=== PATIENT | male | born 1970 | race African-American/Black ===

== ENCOUNTER 2022-10-15 23:09 | Inpatient (IN) | payer MEDICAID ==
[~2022-10-15] VITALS: Ht 165.1 cm; Wt 63.6 kg
[~2022-10-15 23:09] MED LIST: AMLO10TA80 PO; FURO-152 PO; LOSA25TA3 PO
[2022-10-15] MEDS ORDERED: METHYLPREDNISOLONE SOD SUCC 125 MG/2 ML VIAL IV STA (23:25)
[2022-10-15] MEDS ORDERED: ALBUTEROL (0.083%) 2.5MG/3ML NEB HHN STA (23:25)
[2022-10-15] MEDS ORDERED: IPRATROPIUM BROMIDE (0.02%) 0.5MG/2.5ML NEB HHN STA (23:25)
[2022-10-15] MEDS ORDERED: LORAZEPAM 2MG/ML CPJ IV ONE (23:30)
[2022-10-16] VITALS (14 sets, daily range): BP systolic 91–158; BP diastolic 54–125
[2022-10-16] MEDS ORDERED: LORAZEPAM 2MG/ML CPJ IV ONE
[2022-10-16] MEDS ORDERED: HALOPERIDOL LACTATE 5MG/ML VIAL IM ONE
[2022-10-16 00:12] LABS: HEMATOCRIT. 27.2 % (42.0-52.0); HEMOGLOBIN. 8.2 g/dL (14.0-18.0); MEAN CORPUSCULAR HEMOGLOBIN 22.7 pg (28.0-32.0); MEAN CORPUSCULAR VOLUME 74.9 fL (80.0-94.0); MEAN PLATELET VOLUME 7.2 fl (7.4-10.4); PLATELET 367 x1000/uL (130-400); RED BLOOD CELL COUNT 3.63 mill/uL (4.7-6.1); RED CELL DISTRIBUTION WIDTH 21.4 % (11.6-14.6)
[2022-10-16 00:23] LABS: CHLORIDE 102 mEq/L (98-107)
[2022-10-16 00:35] LABS: BG BASE EXCESS -10.5 mmol/L (-2.0-2.0); BG CARBOXYHEMOGLOBIN 0.4 % (0.5-1.5); BG DEOXYHEMOGLOBIN 0.4 % (0.0-5.0); BG FRACTION INSPIRED OXYGEN 100; BG METHEMOGLOBIN 0.4 % (0.0-1.5); BG OXYGEN SATURATION 99.6 % (92.0-98.5); BG OXYHEMOGLOBIN 98.8 % (94.0-97.0); BG PCO2 31.7 mmHg (35.0-45.0); BG PH 7.293 (7.350-7.450); BG PO2 287.5 mmHg (75.0-100.0); BG SAMPLE SITE RIGHT RADIAL; BG TOTAL HEMOGLOBIN 8.9 g/dL (12.0-18.0); BG VENT MODE MASK - BIPAP
[2022-10-16 00:58] LABS: PLATELET ESTIMATE NORMAL
[2022-10-16] MEDS ORDERED: IPRATROPIUM BROMIDE (0.02%) 0.5MG/2.5ML NEB ONE (01:08)
[2022-10-16] MEDS ORDERED: ALBUTEROL (0.083%) 2.5MG/3ML NEB HHN NR (01:15)
[2022-10-16] MEDS ORDERED: OLANZAPINE 10 MG/VIAL IM ONE (01:30)
[2022-10-16] MEDS ORDERED: CEFTRIAXONE 1 G PREMIX 50 ML IV ONE (01:45)
[2022-10-16] MEDS ORDERED: VANCOMYCIN 1G PREMIX 200 ML IV SCH (01:45)
[2022-10-16] MEDS ORDERED: AZITHROMYCIN 500MG/250ML 250 ML IV ONE (02:15)
[2022-10-16] MEDS ORDERED: AZITHROMYCIN 500MG/250ML 250 ML IV NR (08:00)
[2022-10-16] MEDS ORDERED: FUROSEMIDE 20MG/2ML VIAL IVP NR (09:15)
[2022-10-16] MEDS ORDERED: ONDANSETRON HCL 4MG/2ML INJ IV PRN (10:00)
[2022-10-16] MEDS ORDERED: DOCUSATE SODIUM 100MG CAPSULE PO PRN (10:00)
[2022-10-16] MEDS ORDERED: MAGNESIUM/ALUMINUM HYDROXIDE/SIMETHICONE 30ML UDC PO PRN (10:00)
[2022-10-16] MEDS ORDERED: GUAIFENESIN 200MG/10ML SUGAR FREE UDC PO PRN (10:00)
[2022-10-16] MEDS ORDERED: PIPERACILLIN/TAZOBACTAM 3.375 G in DEXTROSE 5% WATER 50 ML IV SCH (10:00)
[2022-10-16] MEDS ORDERED: ACETAMINOPHEN 325MG TABLET PO PRN ×2 (10:00)
[2022-10-16] MEDS ORDERED: IPRATROPIUM/ALBUTEROL 0.5-3(2.5)MG/3ML NEB HHN PRN ×2 (10:00→10:45)
[2022-10-16] MEDS ORDERED: IPRATROPIUM BROMIDE (0.02%) 0.5MG/2.5ML NEB HHN PRN ×2 (10:30→11:15)
[2022-10-16] MEDS ORDERED: ALBUTEROL (0.083%) 2.5MG/3ML NEB HHN PRN ×2 (10:30→11:15)
[2022-10-16 10:47] LABS: BG BASE EXCESS -11.2 mmol/L (-2.0-2.0); BG CARBOXYHEMOGLOBIN 0.3 % (0.5-1.5); BG DEOXYHEMOGLOBIN 5.6 % (0.0-5.0); BG FRACTION INSPIRED OXYGEN 60; BG HCO3 ACT 14.5 mmol/L (22.0-26.0); BG METHEMOGLOBIN 0.5 % (0.0-1.5); BG OXYGEN SATURATION 94.4 % (92.0-98.5); BG OXYHEMOGLOBIN 93.6 % (94.0-97.0); BG PCO2 31.8 mmHg (35.0-45.0); BG PH 7.277 (7.350-7.450); BG PO2 89.6 mmHg (75.0-100.0); BG SAMPLE SITE RIGHT RADIAL; BG TOTAL HEMOGLOBIN 10.1 g/dL (12.0-18.0); BG VENT MODE MASK - BIPAP
[2022-10-16] MEDS: FAMOTIDINE 20MG/2ML VIAL IV SCH (10:57)
[2022-10-16] MEDS ORDERED: IPRATROPIUM/ALBUTEROL 0.5-3(2.5)MG/3ML NEB HHN SCH (12:00)
[2022-10-16 12:01] LABS: PHOSPHORUS 7.4 mg/dL (2.5-4.9)
[2022-10-16] MEDS: PIPERACILLIN/TAZOBACTAM 3.375 G in DEXTROSE 5% WATER 50 ML IV SCH ×2 (12:47→21:00)
[2022-10-16 16:08] LABS: BG BASE EXCESS -14.2 mmol/L (-2.0-2.0); BG CARBOXYHEMOGLOBIN 0.3 % (0.5-1.5); BG DEOXYHEMOGLOBIN 2.2 % (0.0-5.0); BG FRACTION INSPIRED OXYGEN 60; BG HCO3 ACT 11.9 mmol/L (22.0-26.0); BG METHEMOGLOBIN 0.2 % (0.0-1.5); BG OXYGEN SATURATION 97.8 % (92.0-98.5); BG OXYHEMOGLOBIN 97.3 % (94.0-97.0); BG PCO2 28.9 mmHg (35.0-45.0); BG PH 7.233 (7.350-7.450); BG PO2 117.5 mmHg (75.0-100.0); BG SAMPLE SITE RIGHT BRACHIAL; BG TOTAL HEMOGLOBIN 9.7 g/dL (12.0-18.0)
[2022-10-16] MEDS: IPRATROPIUM BROMIDE (0.02%) 0.5MG/2.5ML NEB HHN SCH (16:26)
[2022-10-16] MEDS: ALBUTEROL (0.083%) 2.5MG/3ML NEB HHN SCH (16:26)
[2022-10-16 17:33] LABS: CREATINE KINASE MB FRACTION 12.5 ng/mL (0.5-3.6)
[2022-10-16 17:34] LABS: HDL CHOLESTEROL 20 mg/dL (40-59); LDL CHOLESTEROL 28 mg/dL (5-100)
[2022-10-16 17:42] LABS: FOLIC ACID (FOLATE) SERUM 15.6 ng/mL (>5.38)
[2022-10-16] MEDS ORDERED: SODIUM BICARBONATE 8.4% 1 MEQ/ML 50ML SYR IV NR (18:00)
[2022-10-16] MEDS: SEVELAMER CARBONATE 800 MG TABLET PO SCH (18:48)
[2022-10-16 21:44] LABS: D-DIMER 33.85 mg/L FEU (<0.50); INR 3.6; PROTHROMBIN TIME 36.1 sec (9.6-11.0)
[2022-10-17] VITALS (82 sets, daily range): BP systolic 103–170; BP diastolic 27–110
[2022-10-17] MEDS ORDERED: SODIUM CHLORIDE 0.45% 1,000 ML IV NR (03:00)
[2022-10-17 03:31] LABS: CLARITY URINE CLOUDY (CLEAR); COLOR URINE DARK YELLOW (YELLOW); KETONES URINE TRACE (NEGATIVE); LEUKOCYTE ESTERASE URINE 2+ (NEGATIVE); NITRITE URINE NEGATIVE (NEGATIVE); OCCULT BLOOD URINE 3+ (NEGATIVE); PROTEIN URINE 2+ (NEGATIVE); SPECIFIC GRAVITY URINE 1.018 (1.005-1.030)
[2022-10-17] MEDS: IPRATROPIUM BROMIDE (0.02%) 0.5MG/2.5ML NEB HHN SCH ×5 (03:35→20:22)
[2022-10-17] MEDS: ALBUTEROL (0.083%) 2.5MG/3ML NEB HHN SCH ×5 (03:35→20:22)
[2022-10-17 04:01] LABS: *AMPHETAMINES SCREEN URINE PRESUMTIVE POSITIVE (NEGATIVE); *BARBITURATES SCREEN URINE NEGATIVE (NEGATIVE); *BENZODIAZEPINES SCREEN URINE NEGATIVE (NEGATIVE); *COCAINE SCREEN URINE PRESUMTIVE POSITIVE (NEGATIVE); CANNABINOID URINE SCREEN NEGATIVE (NEGATIVE); METHADONE URINE SCREEN NEGATIVE (NEGATIVE); OPIATES URINE SCREEN NEGATIVE (NEGATIVE); PHENCYCLIDINE URINE SCREEN NEGATIVE (NEGATIVE)
[2022-10-17 05:31] LABS: CHLORIDE 102 mEq/L (98-107)
[2022-10-17 05:33] LABS: HEMATOCRIT. 35.1 % (42.0-52.0); HEMOGLOBIN. 10.3 g/dL (14.0-18.0); MEAN CORPUSCULAR HEMOGLOBIN 21.9 pg (28.0-32.0); MEAN CORPUSCULAR VOLUME 74.6 fL (80.0-94.0); MEAN PLATELET VOLUME 8.2 fl (7.4-10.4); PLATELET 294 x1000/uL (130-400); RED BLOOD CELL COUNT 4.71 mill/uL (4.7-6.1); RED CELL DISTRIBUTION WIDTH 21.7 % (11.6-14.6)
[2022-10-17 05:48] LABS: CREATINE KINASE MB FRACTION 14.5 ng/mL (0.5-3.6); T4 FREE 0.93 ng/dL (0.76-1.46)
[2022-10-17] MEDS: SEVELAMER CARBONATE 800 MG TABLET PO SCH ×3 (06:09→16:34)
[2022-10-17] MEDS: PIPERACILLIN/TAZOBACTAM 3.375 G in DEXTROSE 5% WATER 50 ML IV SCH (08:56)
[2022-10-17] MEDS: AZITHROMYCIN 500 MG in DEXT 5% WATER 250 ML IV SCH (08:56)
[2022-10-17] MEDS: FAMOTIDINE 20MG/2ML VIAL IV SCH (08:56)
[2022-10-17] MEDS: ASPIRIN 81MG TABLET PO SCH (08:56)
[2022-10-17] MEDS: QUETIAPINE FUMARATE 25MG TABLET PO SCH ×2 (08:57→20:42)
[2022-10-17 09:07] LABS: BG BASE EXCESS -7.2 mmol/L (-2.0-2.0); BG CARBOXYHEMOGLOBIN 0.5 % (0.5-1.5); BG DEOXYHEMOGLOBIN 2.8 % (0.0-5.0); BG FRACTION INSPIRED OXYGEN 60; BG HCO3 ACT 17.9 mmol/L (22.0-26.0); BG METHEMOGLOBIN 0.5 % (0.0-1.5); BG OXYGEN SATURATION 97.2 % (92.0-98.5); BG OXYHEMOGLOBIN 96.2 % (94.0-97.0); BG PCO2 34.6 mmHg (35.0-45.0); BG PH 7.331 (7.350-7.450); BG PO2 98.2 mmHg (75.0-100.0); BG SAMPLE SITE RIGHT BRACHIAL; BG TOTAL HEMOGLOBIN 11.3 g/dL (12.0-18.0); BG VENT MODE MASK - BIPAP
[2022-10-17 09:08] LABS: PLATELET ESTIMATE NORMAL
[2022-10-17] MEDS: AMLODIPINE 10MG TABLET PO SCH (10:00)
[2022-10-17] MEDS ORDERED: VANCOMYCIN 500MG PREMIX 100 ML IV SCH (12:00)
[2022-10-17] MEDS ORDERED: PHYTONADIONE 10MG/ML AMP SUBCUT NR (14:45)
[2022-10-17] MEDS ORDERED: CEFTRIAXONE 2 G PREMIX 50 ML IV SCH (16:15)
[2022-10-17] MEDS: CEFTRIAXONE 2 G in DEXTROSE 5% WATER 50 ML IV SCH (20:43)
[2022-10-17 23:35] LABS: INR 1.8; PROTHROMBIN TIME 19.1 sec (9.6-11.0)
[2022-10-18] VITALS (63 sets, daily range): BP systolic 81–171; BP diastolic 28–100
[2022-10-18] MEDS: IPRATROPIUM BROMIDE (0.02%) 0.5MG/2.5ML NEB HHN SCH ×3 (00:33→08:23)
[2022-10-18] MEDS: ALBUTEROL (0.083%) 2.5MG/3ML NEB HHN SCH ×3 (00:33→08:23)
[2022-10-18 05:43] LABS: HEMATOCRIT. 35.3 % (42.0-52.0); HEMOGLOBIN. 10.7 g/dL (14.0-18.0); MEAN CORPUSCULAR HEMOGLOBIN 22.5 pg (28.0-32.0); MEAN CORPUSCULAR VOLUME 74.2 fL (80.0-94.0); MEAN PLATELET VOLUME 8.3 fl (7.4-10.4); PLATELET 292 x1000/uL (130-400); RED BLOOD CELL COUNT 4.76 mill/uL (4.7-6.1); RED CELL DISTRIBUTION WIDTH 21.9 % (11.6-14.6)
[2022-10-18 05:58] LABS: INR 1.5; PROTHROMBIN TIME 16.1 sec (9.6-11.0)
[2022-10-18 06:16] LABS: CHLORIDE 107 mEq/L (98-107)
[2022-10-18] MEDS: SEVELAMER CARBONATE 800 MG TABLET PO SCH ×3 (06:44→18:22)
[2022-10-18] MEDS ORDERED: LIDOCAINE HCL 1% 30ML VIAL (10MG/ML) ONE (08:20)
[2022-10-18] MEDS ORDERED: HEPARIN 1000 UNITS/ML 10ML ONE (08:21)
[2022-10-18] MEDS ORDERED: LORAZEPAM 2MG/ML CPJ IV NR (08:30)
[2022-10-18] MEDS ORDERED: LORAZEPAM 2MG/ML CPJ IV PRN (09:00)
[2022-10-18 10:01] LABS: PLATELET ESTIMATE NORMAL
[2022-10-18] MEDS ORDERED: IPRATROPIUM/ALBUTEROL 0.5-3(2.5)MG/3ML NEB HHN PRN (10:15)
[2022-10-18] MEDS: FAMOTIDINE 20MG/2ML VIAL IV SCH (10:19)
[2022-10-18] MEDS: QUETIAPINE FUMARATE 25MG TABLET PO SCH ×2 (10:19→20:43)
[2022-10-18] MEDS: AZITHROMYCIN 500 MG in DEXT 5% WATER 250 ML IV SCH (10:19)
[2022-10-18] MEDS: ASPIRIN 81MG TABLET PO SCH (10:20)
[2022-10-18] MEDS: IPRATROPIUM/ALBUTEROL 0.5-3(2.5)MG/3ML NEB HHN SCH ×4 (12:36→23:57)
[2022-10-18] MEDS: AMLODIPINE 10MG TABLET PO SCH (14:20)
[2022-10-18] MEDS: SODIUM CHLORIDE 0.45% 1,000 ML IV SCH (14:59)
[2022-10-18 15:53] LABS: HEPATITIS B SURFACE ANTIGEN NEGATIVE
[2022-10-18] MEDS: CEFTRIAXONE 2 G in DEXTROSE 5% WATER 50 ML IV SCH (20:43)
[2022-10-19] VITALS (23 sets, daily range): BP systolic 114–170; BP diastolic 73–99
[2022-10-19] MEDS: IPRATROPIUM/ALBUTEROL 0.5-3(2.5)MG/3ML NEB HHN SCH ×4 (04:10→17:55)
[2022-10-19 05:46] LABS: HEMATOCRIT. 28.7 % (42.0-52.0); HEMOGLOBIN. 8.8 g/dL (14.0-18.0); MEAN CORPUSCULAR HEMOGLOBIN 22.1 pg (28.0-32.0); MEAN CORPUSCULAR VOLUME 72.1 fL (80.0-94.0); MEAN PLATELET VOLUME 7.9 fl (7.4-10.4); PLATELET 277 x1000/uL (130-400); RED BLOOD CELL COUNT 3.98 mill/uL (4.7-6.1); RED CELL DISTRIBUTION WIDTH 21.2 % (11.6-14.6)
[2022-10-19 05:56] LABS: INR 1.3; PROTHROMBIN TIME 13.4 sec (9.6-11.0)
[2022-10-19 06:02] LABS: CHLORIDE 104 mEq/L (98-107)
[2022-10-19] MEDS: ASPIRIN 81MG TABLET PO SCH (08:50)
[2022-10-19] MEDS: AZITHROMYCIN 500 MG in DEXT 5% WATER 250 ML IV SCH (08:50)
[2022-10-19] MEDS: SEVELAMER CARBONATE 800 MG TABLET PO SCH ×3 (08:50→17:34)
[2022-10-19] MEDS: AMLODIPINE 10MG TABLET PO SCH (08:51)
[2022-10-19] MEDS: QUETIAPINE FUMARATE 25MG TABLET PO SCH ×2 (08:51→22:19)
[2022-10-19] MEDS: FAMOTIDINE 20MG/2ML VIAL IV SCH (08:51)
[2022-10-19 09:44] LABS: PLATELET ESTIMATE NORMAL
[2022-10-19 10:33] LABS: BG BASE EXCESS -1.2 mmol/L (-2.0-2.0); BG CARBOXYHEMOGLOBIN 0.3 % (0.5-1.5); BG DEOXYHEMOGLOBIN 4.3 % (0.0-5.0); BG FRACTION INSPIRED OXYGEN 60; BG HCO3 ACT 24.1 mmol/L (22.0-26.0); BG METHEMOGLOBIN 0.2 % (0.0-1.5); BG OXYGEN SATURATION 95.7 % (92.0-98.5); BG OXYHEMOGLOBIN 95.2 % (94.0-97.0); BG PCO2 43.2 mmHg (35.0-45.0); BG PH 7.365 (7.350-7.450); BG PO2 87.4 mmHg (75.0-100.0); BG SAMPLE SITE RIGHT RADIAL; BG VENT MODE MASK - SIMPLE
[2022-10-19] MEDS: SODIUM CHLORIDE 0.45% 1,000 ML IV SCH (14:21)
[2022-10-19] MEDS ORDERED: IPRATROPIUM BROMIDE (0.02%) 0.5MG/2.5ML NEB HHN PRN (19:00)
[2022-10-19] MEDS ORDERED: ALBUTEROL (0.083%) 2.5MG/3ML NEB HHN PRN (19:00)
[2022-10-19] MEDS: CLONIDINE 0.1MG TABLET PO PRN (19:16)
[2022-10-19] MEDS: IPRATROPIUM BROMIDE (0.02%) 0.5MG/2.5ML NEB HHN SCH (21:49)
[2022-10-19] MEDS: ALBUTEROL (0.083%) 2.5MG/3ML NEB HHN SCH (21:49)
[2022-10-19] MEDS: CEFTRIAXONE 2 G in DEXTROSE 5% WATER 50 ML IV SCH (22:19)
[2022-10-20] VITALS (12 sets, daily range): BP systolic 145–201; BP diastolic 80–114
[2022-10-20] MEDS ORDERED: FUROSEMIDE 20MG/2ML VIAL IVP NR
[2022-10-20] MEDS: ALBUTEROL (0.083%) 2.5MG/3ML NEB HHN SCH ×6 (00:35→15:46)
[2022-10-20] MEDS: IPRATROPIUM BROMIDE (0.02%) 0.5MG/2.5ML NEB HHN SCH ×6 (00:35→15:46)
[2022-10-20 06:00] LABS: HEMATOCRIT. 33.4 % (42.0-52.0); HEMOGLOBIN. 10.2 g/dL (14.0-18.0); MEAN CORPUSCULAR HEMOGLOBIN 21.9 pg (28.0-32.0); MEAN PLATELET VOLUME 8.7 fl (7.4-10.4); PLATELET 271 x1000/uL (130-400); RED BLOOD CELL COUNT 4.64 mill/uL (4.7-6.1); RED CELL DISTRIBUTION WIDTH 21.5 % (11.6-14.6)
[2022-10-20 06:39] LABS: CHLORIDE 101 mEq/L (98-107)
[2022-10-20] MEDS: ASPIRIN 81MG TABLET PO SCH (08:31)
[2022-10-20] MEDS: SEVELAMER CARBONATE 800 MG TABLET PO SCH ×3 (08:31→17:46)
[2022-10-20] MEDS: AMLODIPINE 10MG TABLET PO SCH (08:33)
[2022-10-20] MEDS: FAMOTIDINE 20MG/2ML VIAL IV SCH (08:33)
[2022-10-20] MEDS: QUETIAPINE FUMARATE 25MG TABLET PO SCH ×2 (08:33→20:42)
[2022-10-20] MEDS: AZITHROMYCIN 500 MG in DEXT 5% WATER 250 ML IV SCH (08:34)
[2022-10-20] MEDS: SODIUM CHLORIDE 0.45% 1,000 ML IV SCH (11:43)
[2022-10-20] MEDS: CEFTRIAXONE 2 G in DEXTROSE 5% WATER 50 ML IV SCH (20:43)
[2022-10-20] MEDS ORDERED: HYDRALAZINE HCL 50MG TABLET PO SCH (21:00)
[2022-10-20] MEDS ORDERED: HYDRALAZINE HCL 10MG TABLET PO SCH (21:00)
[2022-10-20 21:42] LABS: CHLORIDE 102 mEq/L (98-107)
[2022-10-21] VITALS (14 sets, daily range): BP systolic 115–176; BP diastolic 63–110
[2022-10-21] MEDS: SODIUM CHLORIDE 0.45% 1,000 ML IV SCH (00:48)
[2022-10-21] MEDS: ALBUTEROL (0.083%) 2.5MG/3ML NEB HHN SCH ×5 (03:15→20:55)
[2022-10-21] MEDS: IPRATROPIUM BROMIDE (0.02%) 0.5MG/2.5ML NEB HHN SCH ×5 (03:15→20:55)
[2022-10-21 04:17] LABS: HIV SCREEN 4G Non Reactive (Non Reactive)
[2022-10-21 07:05] LABS: HEMOGLOBIN. 9.5 g/dL (14.0-18.0); MEAN CORPUSCULAR VOLUME 71.5 fL (80.0-94.0); MEAN PLATELET VOLUME 8.7 fl (7.4-10.4); PLATELET 248 x1000/uL (130-400); RED BLOOD CELL COUNT 4.33 mill/uL (4.7-6.1); RED CELL DISTRIBUTION WIDTH 21.7 % (11.6-14.6)
[2022-10-21 07:16] LABS: CHLORIDE 104 mEq/L (98-107)
[2022-10-21 07:24] LABS: CREATINE KINASE 67 IU/L (39-308); HAPTOGLOBIN 122 mg/dL (30-200)
[2022-10-21] MEDS: SEVELAMER CARBONATE 800 MG TABLET PO SCH ×3 (08:00→16:53)
[2022-10-21] MEDS: LOSARTAN POTASSIUM 25 MG TABLET PO SCH ×2 (09:00→11:21)
[2022-10-21] MEDS: QUETIAPINE FUMARATE 25MG TABLET PO SCH ×2 (09:00→20:42)
[2022-10-21] MEDS: AMLODIPINE 10MG TABLET PO SCH ×2 (09:00→11:21)
[2022-10-21] MEDS: ASPIRIN 81MG TABLET PO SCH (09:00)
[2022-10-21] MEDS: FAMOTIDINE 20MG/2ML VIAL IV SCH (09:00)
[2022-10-21 09:53] LABS: NUCLEATED RED BLOOD CELLS 2 /100 WBC; PLATELET ESTIMATE NORMAL
[2022-10-21 11:49] LABS: NUCLEATED RED BLOOD CELLS 1 /100 WBC; PLATELET ESTIMATE NORMAL
[2022-10-21] MEDS ORDERED: LIDOCAINE 2% 6ML GLYDO MM ONE (14:16)
[2022-10-21] MEDS ORDERED: TETRACAINE/BENZOCAINE/BUTAMBEN 20 GM SPRAY MM ONE (14:17)
[2022-10-21] MEDS ORDERED: FENTANYL CITRATE/PF 50MCG/ML 2ML VIAL ONE ×2 (14:40→14:51)
[2022-10-21] MEDS ORDERED: MIDAZOLAM HCL 2 MG/2 ML VIAL ONE ×2 (14:41→14:51)
[2022-10-21] MEDS: ENOXAPARIN 40MG/0.4ML SYR SUBCUT SCH (16:53)
[2022-10-21] MEDS ORDERED: HYDRALAZINE 20MG/ML VIAL IV PRN (17:45)
[2022-10-21] MEDS: CEFTRIAXONE 2 G in DEXTROSE 5% WATER 50 ML IV SCH (20:42)
[2022-10-21] MEDS: CLONIDINE 0.1MG TABLET PO PRN (20:44)
[2022-10-22] VITALS (17 sets, daily range): BP systolic 116–159; BP diastolic 64–98
[2022-10-22] MEDS: ALBUTEROL (0.083%) 2.5MG/3ML NEB HHN SCH ×5 (00:14→21:09)
[2022-10-22] MEDS: IPRATROPIUM BROMIDE (0.02%) 0.5MG/2.5ML NEB HHN SCH ×5 (00:15→21:09)
[2022-10-22 07:04] LABS: HEMATOCRIT. 28.4 % (42.0-52.0); HEMOGLOBIN. 8.8 g/dL (14.0-18.0); MEAN CORPUSCULAR HEMOGLOBIN 21.9 pg (28.0-32.0); MEAN CORPUSCULAR VOLUME 71.1 fL (80.0-94.0); MEAN PLATELET VOLUME 7.7 fl (7.4-10.4); PLATELET 251 x1000/uL (130-400); RED CELL DISTRIBUTION WIDTH 21.3 % (11.6-14.6)
[2022-10-22 07:51] LABS: CHLORIDE 108 mEq/L (98-107)
[2022-10-22] MEDS: QUETIAPINE FUMARATE 25MG TABLET PO SCH ×2 (08:46→20:52)
[2022-10-22] MEDS: ENOXAPARIN 40MG/0.4ML SYR SUBCUT SCH (08:47)
[2022-10-22] MEDS: ASPIRIN 81MG TABLET PO SCH (08:47)
[2022-10-22] MEDS: SEVELAMER CARBONATE 800 MG TABLET PO SCH ×3 (08:47→18:13)
[2022-10-22] MEDS: LOSARTAN POTASSIUM 25 MG TABLET PO SCH (08:49)
[2022-10-22] MEDS: AMLODIPINE 10MG TABLET PO SCH (08:49)
[2022-10-22 09:12] LABS: IMMUNOGLOBULIN A 390 mg/dL (90-386); IMMUNOGLOBULIN G 2594 mg/dL (603-1613); IMMUNOGLOBULIN M 91 mg/dL (20-172)
[2022-10-22 17:56] LABS: PLATELET ESTIMATE NORMAL
[2022-10-22] MEDS: CEFTRIAXONE 2 G in DEXTROSE 5% WATER 50 ML IV SCH (20:50)
[2022-10-23] VITALS: BP 135/79
[2022-10-23] MEDS: IPRATROPIUM BROMIDE (0.02%) 0.5MG/2.5ML NEB HHN SCH ×6 (00:06→20:53)
[2022-10-23] MEDS: ALBUTEROL (0.083%) 2.5MG/3ML NEB HHN SCH ×6 (00:06→20:53)
[2022-10-23 04:00] VITALS: BP 146/84
[2022-10-23 05:46] LABS: BASOPHILS % 0.2 % (0.0-2.0); EOSINOPHILS % 1.9 % (0.0-5.0); HEMATOCRIT. 28.2 % (42.0-52.0); HEMOGLOBIN. 8.8 g/dL (14.0-18.0); LYMPHOCYTES % 16.3 % (20.0-50.0); MEAN CORPUSCULAR HEMOGLOBIN 22.3 pg (28.0-32.0); MEAN CORPUSCULAR VOLUME 71.2 fL (80.0-94.0); MEAN PLATELET VOLUME 8.8 fl (7.4-10.4); MONOCYTES % 16.9 % (2.0-8.0); NEUTROPHILS % 64.7 % (40.0-76.0); PLATELET 246 x1000/uL (130-400); RED BLOOD CELL COUNT 3.96 mill/uL (4.7-6.1); RED CELL DISTRIBUTION WIDTH 21.5 % (11.6-14.6)
[2022-10-23 07:10] LABS: CHLORIDE 107 mEq/L (98-107)
[2022-10-23 08:00] VITALS: BP 138/76
[2022-10-23] MEDS ORDERED: CEFTRIAXONE 2 G PREMIX 50 ML IV SCH (08:30)
[2022-10-23] MEDS: AMLODIPINE 10MG TABLET PO SCH (09:34)
[2022-10-23] MEDS: ASPIRIN 81MG TABLET PO SCH (09:34)
[2022-10-23] MEDS: LOSARTAN POTASSIUM 25 MG TABLET PO SCH (09:34)
[2022-10-23] MEDS: SEVELAMER CARBONATE 800 MG TABLET PO SCH ×3 (09:34→17:40)
[2022-10-23] MEDS: QUETIAPINE FUMARATE 25MG TABLET PO SCH ×2 (09:35→21:37)
[2022-10-23] MEDS: ENOXAPARIN 40MG/0.4ML SYR SUBCUT SCH (09:36)
[2022-10-23 12:00] VITALS: BP 159/85
[2022-10-23] MEDS: CEFTRIAXONE 2 G in DEXTROSE 5% WATER 50 ML IV SCH (13:47)
[2022-10-23 20:00] VITALS: BP 154/90
[2022-10-24] VITALS: BP 146/89
[2022-10-24 04:00] VITALS: BP 139/79
[2022-10-24] MEDS: ALBUTEROL (0.083%) 2.5MG/3ML NEB HHN SCH ×6 (04:00→20:19)
[2022-10-24] MEDS: IPRATROPIUM BROMIDE (0.02%) 0.5MG/2.5ML NEB HHN SCH ×6 (04:00→20:19)
[2022-10-24 08:00] VITALS: BP 150/79
[2022-10-24 09:51] LABS: CHLORIDE 117 mEq/L (98-107)
[2022-10-24 11:04] LABS: PHOSPHORUS 3.4 mg/dL (2.5-4.9)
[2022-10-24] MEDS: SEVELAMER CARBONATE 800 MG TABLET PO SCH ×3 (11:19→17:23)
[2022-10-24] MEDS: AMLODIPINE 10MG TABLET PO SCH (11:20)
[2022-10-24] MEDS: LOSARTAN POTASSIUM 25 MG TABLET PO SCH (11:20)
[2022-10-24] MEDS: ASPIRIN 81MG TABLET PO SCH (11:20)
[2022-10-24] MEDS: ENOXAPARIN 40MG/0.4ML SYR SUBCUT SCH (11:21)
[2022-10-24] MEDS: QUETIAPINE FUMARATE 25MG TABLET PO SCH (11:22)
[2022-10-24] MEDS: CEFTRIAXONE 2 G in DEXTROSE 5% WATER 50 ML IV SCH (11:43)
[2022-10-24 12:00] VITALS: BP 138/73
[2022-10-24] MEDS ORDERED: LIDOCAINE HCL 1% 10 MG/ML 10ML VIAL ONE (13:22)
[2022-10-24 16:00] VITALS: BP 130/70
[2022-10-24 16:26] LABS: BASOPHILS % 0.3 % (0.0-2.0); EOSINOPHILS % 2.6 % (0.0-5.0); HEMATOCRIT. 27.4 % (42.0-52.0); HEMOGLOBIN. 8.5 g/dL (14.0-18.0); LYMPHOCYTES % 15.2 % (20.0-50.0); MEAN CORPUSCULAR HEMOGLOBIN 22.1 pg (28.0-32.0); MEAN CORPUSCULAR VOLUME 71.5 fL (80.0-94.0); MEAN PLATELET VOLUME 7.4 fl (7.4-10.4); MONOCYTES % 12.9 % (2.0-8.0); PLATELET 270 x1000/uL (130-400); RED BLOOD CELL COUNT 3.83 mill/uL (4.7-6.1); RED CELL DISTRIBUTION WIDTH 21.4 % (11.6-14.6)
[2022-10-24 20:10] VITALS: BP 113/85
[2022-10-27 08:09] LABS: HGB A2 2.4 % (1.8-3.2)
== END 2022-10-25 07:35 | DRG 720 ==
LOC: ER 23:09 → 5EST 10-16 02:18 → MICUSO 10-16 21:03 → 5EST 10-19 18:30
PROVIDERS: ADMIT Internal Medicine; ATTEND Internal Medicine
PROC: 5A09457 Assistance with Respiratory Ventilation, 24-96 Consecutive Hours, Continuous Positive Airway Pressure (ICD-10-PCS; principal; 2022-10-15)
PROC: 5A09357 Assistance with Respiratory Ventilation, Less than 24 Consecutive Hours, Continuous Positive Airway Pressure (ICD-10-PCS; 2022-10-18)
PROC: 02HV33Z Insertion of Infusion Device into Superior Vena Cava, Percutaneous Approach (ICD-10-PCS; 2022-10-18)
PROC: B548ZZA Ultrasonography of Superior Vena Cava, Guidance (ICD-10-PCS; 2022-10-18)
PROC: 30233K1 Transfusion of Nonautologous Frozen Plasma into Peripheral Vein, Percutaneous Approach (ICD-10-PCS; 2022-10-18)
PROC: 5A1D70Z Performance of Urinary Filtration, Intermittent, Less than 6 Hours Per Day (ICD-10-PCS; 2022-10-18)
PROC: B246ZZ4 Ultrasonography of Right and Left Heart, Transesophageal (ICD-10-PCS; 2022-10-22)
PROC: 02HV33Z Insertion of Infusion Device into Superior Vena Cava, Percutaneous Approach (ICD-10-PCS; 2022-10-24)
PROC: B5181ZA Fluoroscopy of Superior Vena Cava using Low Osmolar Contrast, Guidance (ICD-10-PCS; 2022-10-24)
PROC: B548ZZA Ultrasonography of Superior Vena Cava, Guidance (ICD-10-PCS; 2022-10-24)
DX: A41.9 Sepsis, unspecified organism (principal); N17.0 Acute kidney failure with tubular necrosis; J96.21 Acute and chronic respiratory failure with hypoxia; I21.4 Non-ST elevation (NSTEMI) myocardial infarction; G92.8 Other toxic encephalopathy; E43 Unspecified severe protein-calorie malnutrition; D68.9 Coagulation defect, unspecified; R18.8 Other ascites; R65.20 Severe sepsis without septic shock; E87.4 Mixed disorder of acid-base balance; D63.8 Anemia in other chronic diseases classified elsewhere; I50.23 Acute on chronic systolic (congestive) heart failure; E78.5 Hyperlipidemia, unspecified; J44.9 Chronic obstructive pulmonary disease, unspecified; F41.9 Anxiety disorder, unspecified; K40.90 Unilateral inguinal hernia, without obstruction or gangrene, not specified as recurrent; M62.82 Rhabdomyolysis; I13.0 Hypertensive heart and chronic kidney disease with heart failure and stage 1 through stage 4 chronic kidney disease, or unspecified chronic kidney disease; I27.20 Pulmonary hypertension, unspecified; Z20.822 Contact with and (suspected) exposure to COVID-19; J15.4 Pneumonia due to other streptococci; D50.9 Iron deficiency anemia, unspecified; E11.22 Type 2 diabetes mellitus with diabetic chronic kidney disease; E88.09 Other disorders of plasma-protein metabolism, not elsewhere classified; I08.3 Combined rheumatic disorders of mitral, aortic and tricuspid valves; I31.39 Other pericardial effusion (noninflammatory); I42.9 Cardiomyopathy, unspecified; J44.0 Chronic obstructive pulmonary disease with (acute) lower respiratory infection; N43.3 Hydrocele, unspecified; K75.9 Inflammatory liver disease, unspecified; N18.9 Chronic kidney disease, unspecified; R74.01 Elevation of levels of liver transaminase levels; Z68.23 Body mass index [BMI] 23.0-23.9, adult; Z79.899 Other long term (current) drug therapy
CPT/HCPCS: 36415; 36556; 36573; 36600; 71045; 71250; 74176; 76770; 76870; 76937; 78580; 80048; 80053; 80061; 80202; 80305; 80320; 81003; 82375; 82550; 82553; 82570; 82607; 82728; 82746; 82784; 82805; 83010; 83021; 83036; 83540; 83550; 83605; 83615; 83735; 83880; 83930; 84100; 84134; 84145; 84300; 84439; 84443; 84481; 84484; 85025; 85044; 85362; 85379; 85384; 85660; 86334; 86705; 86709; 86803; 86850; 86880; 86900; 86927; 87077; 87186; 87340; 87389; 87426; 87804; 90935; 93005; 93306; 93312; 93970; 93976; 94003; 94640; 94660; 94667; 97161; 99291; C1725; C1752; C1760; C1769; J0456; J0696; J1630; J1644; J1650; J1940; J2060; J2250; J2405; J2543; J2930; J3010; J3370; J3430; J3490; J7060; P9017; A4315; G0480

== ENCOUNTER 2024-04-07 15:25 | Emergency (ER) | payer MEDICAID ==
[~2024-04-07] VITALS: Ht 167.6 cm; Wt 55.0 kg
[~2024-04-07 15:25] MED LIST changes: +LOSA-412 PO; -LOSA25TA3 PO
[2024-04-07 15:27] VITALS: O2SAT 100
[2024-04-07] MEDS ORDERED: DICYCLOMINE 10 MG/5 ML ORAL SYR PO STA (15:35)
[2024-04-07 16:29] LABS: BASOPHILS % 0.4 % (0.0-2.0); EOSINOPHILS % 1.1 % (0.0-5.0); HEMATOCRIT. 34.8 % (42.0-52.0); HEMOGLOBIN. 11.5 g/dL (14.0-18.0); LYMPHOCYTES % 12.6 % (20.0-50.0); MEAN CORPUSCULAR HEMOGLOBIN 28.5 pg (28.0-32.0); MEAN CORPUSCULAR HGB CONC 32.9 g/dL (31.0-37.0); MEAN CORPUSCULAR VOLUME 86.6 fL (80.0-94.0); MEAN PLATELET VOLUME 7.6 fl (7.4-10.4); MONOCYTES % 8.3 % (2.0-8.0); NEUTROPHILS % 77.6 % (40.0-76.0); PLATELET 351 x1000/uL (130-400); RED BLOOD CELL COUNT 4.02 mill/uL (4.7-6.1); RED CELL DISTRIBUTION WIDTH 14.1 % (11.6-14.6); WHITE BLOOD COUNT 9.8 x1000/uL (4.5-11.0)
[2024-04-07 16:34] LABS: CHLORIDE 105 mEq/L (98-107); POTASSIUM 2.9 mEq/L (3.5-5.1); SODIUM 142 mEq/L (136-145)
[2024-04-07 16:35] LABS: CALCIUM 9.5 mg/dL (8.7-10.4); CARBON DIOXIDE 32 mEq/L (21-32)
[2024-04-07 16:40] LABS: CREATININE 0.8 mg/dL (0.6-1.3); GLUCOSE 98 mg/dL (70-105)
[2024-04-07 16:41] LABS: UREA NITROGEN BLOOD 12 mg/dL (9-23)
[2024-04-07 16:42] LABS: ALANINE AMINOTRANSFERASE 13 IU/L (10-49); ALBUMIN 4.4 g/dL (3.2-4.8); ASPARTATE AMINOTRANSFERASE 21 IU/L (<34)
[2024-04-07 16:43] LABS: BILIRUBIN DIRECT 0.2 mg/dL (<=3.0); BILIRUBIN TOTAL 0.7 mg/dL (0.1-1.0); PROTEIN TOTAL 7.8 g/dL (6.0-8.3)
[2024-04-07 16:44] LABS: ETHANOL BLOOD < 10 mg/dL (<10)
[2024-04-07 16:49] LABS: INR 1.1
[2024-04-07] MEDS: ONDANSETRON 4MG ODT PO STA (17:02)
[2024-04-07] MEDS: MAGNESIUM/ALUMINUM HYDROXIDE/SIMETHICONE 30ML UDC PO STA (17:02)
[2024-04-07] MEDS: DICYCLOMINE 10 MG/5 ML ORAL SYR PO NR (17:02)
[2024-04-07] MEDS: POTASSIUM CHLORIDE 20MEQ TABLET SR PO ONE (17:04)
[2024-04-07] MEDS: SODIUM CHLORIDE 0.9% 1,000 ML IV ONE (18:02)
[2024-04-07 18:33] VITALS: BP 127/66; PULSE 58; RESP 16; TEMP 97.8
== END 2024-04-07 18:44 | disposition home or self-care (01) ==
LOC: ER 15:25
DX: K29.70 Gastritis, unspecified, without bleeding (principal); E78.00 Pure hypercholesterolemia, unspecified; I10 Essential (primary) hypertension; Z98.890 Other specified postprocedural states
CPT/HCPCS: 80076; 80048; 80320; 83690; 85025; 85610; 36415; 96360; 99284; Q0162; J7030; Z7610 ×3; C1893; G0480